=== PATIENT | male | born 1970 | race Caucasian/White ===

== ENCOUNTER 2017-11-18 23:57 | Emergency (ER) | payer SELFPAY ==
[~2017-11-18] VITALS: Ht 167.6 cm; Wt 81.6 kg
[2017-11-19] VITALS: BP_SYST 168
[2017-11-19 00:10] VITALS: BP_SYST 168
== END 2017-11-19 00:10 ==
LOC: SED 23:57
DX: Z02.89 Encounter for other administrative examinations (principal); V43.52XA Car driver injured in collision with other type car in traffic accident, initial encounter; Y93.89 Activity, other specified; Y92.488 Other paved roadways as the place of occurrence of the external cause; Y99.8 Other external cause status
CPT/HCPCS: 99283